=== PATIENT | female | born 1985 | race Caucasian/White ===

== ENCOUNTER 2019-03-12 14:58 | Emergency (ER) | payer OTHER ==
[~2019-03-12] VITALS: Ht 149.9 cm; Wt 72.7 kg
[2019-03-12 15:02] VITALS: BP 127/84; Ht 149.9 cm; Wt 72.7 kg
[2019-03-12] MEDS ORDERED: PROZAC20 MG PO (15:03)
[2019-03-12] MEDS ORDERED: TOPROL XL50 MG PO (15:03)
[2019-03-12] MEDS ORDERED: ATARAX 25 MG TA25 MG PO (15:41)
== END 2019-03-12 16:13 | disposition home or self-care (01) ==
LOC: D.ER 14:58
DX: F41.8 Other specified anxiety disorders (principal); R07.9 Chest pain, unspecified